=== PATIENT | male | born 1950 | race Caucasian/White ===

== ENCOUNTER → 2018-01-30 08:50 | Outpatient (CLI) | payer BC ==
[2012-10-03 13:44] VITALS: BMI 30.1
[~2018-01-30 08:50] MED LIST: COLACE100 MG PO; COUMADIN5 MG PO; MS CONTIN15 MG PO; NORCO 10/325 TA1 TA1 PO
== END | disposition home or self-care (01) ==
LOC: D.MRI 08:50
DX: M54.5 Low back pain (principal)

== ENCOUNTER → 2019-01-21 08:47 | Outpatient (CLI) | payer BC ==
[2012-10-03 13:44] VITALS: BMI 30.1
--- NOTE | ~2019-01-21 | HEMODYNAMI ---
PATIENT:BARBARA BOWER MEDICAL RECORD: [id number] : 48 [id number] ADMISSION DATE: 01/21/19 Generatedon:01/21/201910:04 Patient name: BARBARA BOWER Patient #: [id number] SSN: : 1950 Date of study: 01/21/2019 Page: Of Hemodynamic Procedure Report Patient Data Patient Demographics Procedure consent was obtained First Name: BARBARA Gender: Male Last Name: SATHISH : 1950 [facility] Initial: O Age: 68 year(s) Patient #: [id number] Race: Unknown Additional ID: [id number] Contact details Address: [address] [place] [address] State: [place] City: [place] Zip code: [address] Past Medical History Allergies: No known allergies Admission Admission Data Admission Date: 01/21/2019 Admission Time: 8:47 Procedure Procedure Types Cath Procedure Peripheral Cath Diagnostic Procedure Miscellaneous Aspiration/Injection (Joint) Procedure Description Procedure Date Procedure Date: 01/21/2019 Procedure Start Time: 9:41 Procedure Staff Name Function Dawson Hinds MD Performing Physician Rick Pichardo RT Monitor Belia Oro RN Nurse Procedure Data Cath Procedure Fluoroscopy Diagnostic fluoroscopy Total fluoroscopy Time: 4.9 time: 4.9 min min Diagnostic fluoroscopy Total fluoroscopy dose: 158 dose: 158 mGy mGy Contrast Material Contrast Material Type Amount (ml) Isovue 300 4 Hemodynamics Rest Pre Cath Intra NCS Post Cath Procedure Log Time Note 9:30:28 Rick Pichardo RT (R) (CV) sent for patient. Start room use. 9:30:40 Patient received from Other to CCL 3 Alert and oriented. Tansferred to table in Prone position. 9:30:43 Correct patient and procedure confirmed by team. 9:30:48 Signed procedure consent form obtained from patient. 9:30:50 Full Disclosure recording started 9:30:50 - 9:30:51 Pre-procedure instructions explained to patient. 9:30:52 Pre-op teaching completed and patient verbalized understanding. 9:30:54 Family in patients room. 9:31:03 Patient allergic to No known allergies 9:31:10 Is patient on blood thinner?No 9:31:22 Left Lumbar sacral area was prepped with chlora-prep and draped in sterile fashion 9:40:42 Physician arrived 9:40:43 --------ALL STOP TIME OUT------ 9:40:43 Final Timeout: patient, procedure, and site verified with staff and physician. All members of the team are in agreement. 9:40:47 Lumbar sacral site verified by team. 9:40:55 Sedation plan: Local Anesthetic Medication:Lidocaine 9:41:41 Procedure started. 9:41:48 Local anesthetic to Lumbar sacral area with Lidocaine 1% by Dawson Hinds MD.INITIAL ACCESS ONLY 9:42:11 SAFE-T PLUS MYELOGRAM TRAY opened to sterile field. 10:00:13 Procedure ended.(Physican Out) 10:00:28 Fluoroscopy time 04.90 minutes. 10:00:49 Fluoroscopy dose: 158 mGy 10:00:49 Flurop Dose total: 158 10:01:06 Contrast amount:Isovue 2 00 4ml. 10:01:35 SITE STABLE BANDAIDE APPLIED PT SENT HOME Device Usage Item Name Manufacture Quantity Catalog Hospital Part Current Minimal Lot# / Number Charge Number Stock Stock Serial# Code SAFE-T [employer] 1 [id number] PLUS MYELOGRAM TRAY Signature Audit Justice Stage Time Signature Unsigned Intra-Procedure 01/21/2019 Rick 10:04:10 AM Marino RT (R) (CV) [facility] [address] [place] [address]
== END | disposition home or self-care (01) ==
LOC: D.RAD 08:47
PROVIDERS: ATTEND Nurse Practitioner Family
DX: M53.3 Sacrococcygeal disorders, not elsewhere classified (principal)